=== PATIENT | male | born 1960 | race Caucasian/White ===

== ENCOUNTER → 2024-01-29 06:31 | Day surgery (SDC) | payer BC, SELFPAY | LOC: GI 06:31 | PROVIDERS: ATTENDING PHYSICIAN Internal Medicine | DX: Z12.11 Encounter for screening for malignant neoplasm of colon (principal); D12.4 Benign neoplasm of descending colon; K63.89 Other specified diseases of intestine; K57.30 Diverticulosis of large intestine without perforation or abscess without bleeding; K62.89 Other specified diseases of anus and rectum; K62.1 Rectal polyp; K64.9 Unspecified hemorrhoids; R19.4 Change in bowel habit; K22.4 Dyskinesia of esophagus; R13.14 Dysphagia, pharyngoesophageal phase; K31.89 Other diseases of stomach and duodenum; Z86.010 Personal history of colon polyps; Z98.0 Intestinal bypass and anastomosis status | CPT/HCPCS: 43249; 43239; 45380; 88305 ==

== ENCOUNTER → 2024-05-04 10:42 | Outpatient (REF) | payer BC, SELFPAY | LOC: RAD 10:42 | PROVIDERS: ATTENDING PHYSICIAN Physician Assistant | DX: J18.9 Pneumonia, unspecified organism (principal) | CPT/HCPCS: 71046 ==

== ENCOUNTER 2024-06-03 17:49 | Outpatient (RCR) | payer BC, SELFPAY | END 2024-06-03 23:59 | disposition home or self-care (01) | LOC: ROT 17:49 | PROVIDERS: ATTENDING PHYSICIAN Physician Assistant Surgical; FAMILY PHYSICIAN Nurse Practitioner | DX: M79.641 Pain in right hand (principal); Z73.6 Limitation of activities due to disability | CPT/HCPCS: 97760 ==

== ENCOUNTER → 2024-06-05 13:48 | Outpatient (REF) | payer BC, SELFPAY | LOC: RAD 13:48 | PROVIDERS: ATTENDING PHYSICIAN Nurse Practitioner; FAMILY PHYSICIAN Physician Assistant | DX: J18.9 Pneumonia, unspecified organism (principal); R05.3 Chronic cough | CPT/HCPCS: 71250 ==

== ENCOUNTER → 2025-02-17 08:02 | Outpatient (REF) | payer BC, SELFPAY | LOC: DHSLP 08:02 | PROVIDERS: ATTENDING PHYSICIAN Internal Medicine; FAMILY PHYSICIAN Nurse Practitioner | DX: G47.33 Obstructive sleep apnea (adult) (pediatric) (principal) | CPT/HCPCS: 95800 ==

== ENCOUNTER 2025-03-30 08:54 | Emergency (ER) | payer BC, SELFPAY ==
[2025-03-30 08:56] VITALS: BP 135/95
[2025-03-30 09:22] VITALS: BP 140/92
--- NOTE | 2025-03-30 09:43 | ED.GENMED ---
History of Present Illness
General
Chief Complaint: Chest Pain
Time Seen by Provider: 03/30/25 09:18
History of Present Illness
History of Present Illness:
65-year-old male with history of hyperlipidemia presenting to the emergency department for dizziness and fatigue. Patient reports symptoms for the past week. He notes that he has been fatigued, tired, with occasional dizziness. Also notes that 2
weeks ago had an episode of severe chest tightness, midsternal. Notes that he still having some slight tightness in his chest. Denies difficulty breathing. Has had a cough without known sick contacts. Denies known cardiac history. Denies
abdominal pain or GI symptoms. Denies any fever. Denies additional acute medical complaints
Past History
Past History
ED Past Medical History: CAD, GERD, Hypercholesterolemia, Other (gout) and Other (diverticulitis)
ED Past Surgical History: Orthopedic
Social History
Tobacco: Non-smoker
Alcohol: Occasional
Drug: None
Personal:
Living: with family
Employment: Employed
Phy Exam
Physical Exam
Physical Exam:
General: Well-appearing, no clinical signs of dehydration, nontoxic and in no acute distress
HEENT: protecting airway, pupils equal and reactive
Neck: appears supple
CV: Normal heart rate, regular rhythm
Resp: No accessory muscle use, no increased work of breathing, lungs clear to auscultation bilaterally
Abd: Soft and non-distended, no tenderness to palpation
Extremities: No deformities, no swelling
Neuro: alert, no focal neurologic deficit
: deferred
Rectal: deferred
Psych: Normal affect
Skin: Intact
Scores
Heart Score for Chest Pain Patients
STEMI patient?: No
History: Slightly or Non-Suspicious
ECG: Normal
Age: >45 - <65 years
Risk Factors: 1 or 2 Risk Factors
Troponin: </= Normal Limit
Heart Score for Chest Pain Patients: 2
Heart Score Risk: 2.5% MACE over next 6 weeks
Course
Orders/Labs/Results
Orders:
Orders
03/30/25 09:00
ECG [Electrocardiogram (*1)] Urgent
Reason for Study: Shortness of Breath
EKG- Treatment ONCE
03/30/25 09:41
CR Chest - 2 Views Urgent
Comment:
Reason For Exam: cough, cp
03/30/25 09:52
COVID-19 Antigen Urgent
Source: Nasal Swab
Complete Blood Count/With Diff Urgent
Comprehensive Metabolic Panel Urgent
Magnesium Urgent
Troponin I Urgent
Influenza A+B Rapid Molecular Urgent
[facility] Source: Nasal Swab
Specimen Description:
Abnormal Lab Results
03/30/25
09:52
Absolute Lymphs (auto) 1.1 L 10^3/uL
(1.2-3.4)
Lymphocytes % 19.6 L %
(20.5-51.1)
Monocytes % 9.8 H %
(1.7-9.3)
Glucose 124 H mg/dl
(70-99)
03/30/25 09:52
03/30/25 09:52
Vital Signs
Initial and Last Documented VS:
Initial Vital Signs
Temp Pulse Resp BP Pulse Ox
98.1 F 81 16 135/95 96
03/30/25 08:56 03/30/25 08:56 03/30/25 08:56 03/30/25 08:56 03/30/25 08:56
Last Documented Vital Signs
Temp Pulse Resp BP Pulse Ox
98.1 F 78 23 131/85 94
03/30/25 08:56 03/30/25 11:41 03/30/25 11:41 03/30/25 11:41 03/30/25 11:41
MDM/Problems Addressed
MDM/Problems Addressed:
65-year-old male with history of high cholesterol presenting to the emergency department for dizziness, episode of chest pain, cough. Vital signs on arrival are normal.
On exam patient is resting comfortably, no acute distress or discomfort. EKG obtained on patient's arrival, nonischemic, reassuring. Patient had stress testing completed in 2021, unremarkable. At this time lower suspicion for acute coronary
syndrome. Patient without any significant PE risk factors, no present dyspnea, tachycardia, hypoxia. Unremarkable cardiac and pulmonary exam. No focal neurologic deficits with lower suspicion for central neurologic process. Does note that he has
been feeling generally fatigued tired, has had ongoing cough. Possible pneumonia versus bronchitis. Plan for chest x-ray imaging and laboratory analysis.
11:35 - Patient's labs are unremarkable. Chest x-ray without acute cardiopulmonary disease. On reassessment, patient remains hemodynamically stable. Does continue to have a dry cough. Reports history of 'walking pneumonia' in the past, so will
trial Z-Logan and steroids. Otherwise feel stable for discharge with interval follow-up primary care doctor. Return precautions discussed and patient verbalized understanding
*Pulse Oximetry
SaO2: 96
Oxygen Mode of Delivery: Room air
Patient hypoxic: no
*EKG
Interpreted by ED Provider?: Yes
EKG Intrepretation Date: 03/30/25
EKG Intrepretation Time: 09:46
Interpretation: normal
Comparison EKG: no changes
Heart Rate: 78
Rate: normal
Rhythm: sinus
[place]: normal axis
Interval: normal interval
QRS Pattern: normal QRS
Ischemia: no ischemia
*Critical Care Note
Total Time (30-74mins, 75-104mins- exclusive of procedures): Not Applicable
ED Attending Note
-
Portions of this chart may have been created with voice recognition software.� Occasional wrong word or��sound alike� substitutions may have occurred due to the inherent limitations of voice recognition software.
Discharge Plan
Departure
Patient Disposition: Home (Routine Discharge)
Date of Disposition: 03/30/25
Time of Disposition: 11:36
Patient with high blood pressure during this ER visit?: No
Condition: Good
Discharge Problem:
Bronchitis
Instructions: Acute bronchitis in adults, Cough in adults - ED (DC)
Prescriptions:
New
prednisone 20 mg tablet
40 mg PO DAILY 5 Days Qty: 10 0RF
azithromycin [Zithromax] 250 mg Tablet
250 mg PO DAILY Qty: 6 0RF
No Action
Omeprazole
20 mg PO DAILY
aspirin [Nelsy Low Dose Aspirin] 81 MG tablet,delayed release (DR/EC)
81 mg PO DAILY
[id number]-hmlarug-ast [krill oil] 1 EACH capsule
2 ea PO DAILY
rosuvastatin [Crestor] 10 MG tablet
10 mg PO DAILY
hydrocodone-acetaminophen 1 TABLET tablet
1 - 2 tab PO Q4HPRN PRN (Reason: moderate to severe pain) Qty: 30 0RF
prednisone 20 MG tablet
20 mg PO BID Qty: 10 0RF
meclizine 25 MG tablet
25 mg PO Q8HPRN PRN (Reason: nausea or vertigo) Qty: 20 0RF
Referrals:
UNKNOWN - PT DOES,NOT KNOW [Family Provider]
Activity Restrictions/Additional Instructions:
You were seen in the emergency department for cough, weakness, dizziness
You were found to have reassuring laboratory analysis and vital signs, as well as EKG. Given the duration of your cough, you were provided a prescription for azithromycin and prednisone. Please take as directed
Please follow-up closely with your primary care physician.
Return to the emergency department for any worsening of your symptoms, or any development of chest pain, difficulty breathing, abdominal pain with persistent vomiting and inability to tolerate food or liquid by mouth (concern for dehydration),
weakness, headache or confusion, fever greater than 100.4, or any additional symptoms that are concerning to you.
Thank you for choosing [facility].
Interventions
Interventions:
*Risk Screen - Suicide Last Done: 03/30/25 08:56
*General Assessment Last Done: 03/30/25 08:56
*Neglect/Abuse Screening Last Done: 03/30/25 09:59
*ED- Fall Risk Assessment Last Done: 03/30/25 09:58
*ED COVID-19 Vaccine History Last Done: 03/30/25 09:58
*ED Influenza Vaccine History Last Done: 03/30/25 09:58
*Nursing Disposition Last Done: 03/30/25 11:48
ED- Cardiac Assessment Last Done: 03/30/25 10:00
Discharge Date and Time
Discharge Date/Time: 03/30/25 12:00
Print Language: [email or web address]
[2025-03-30 09:58] VITALS: BMI 26.9
[2025-03-30 10:00] VITALS: BP 129/85
[2025-03-30 10:13] LABS: Hematocrit 44.6 % (39.0-52.0); Hemoglobin 15.3 g/dL (13.0-18.0); Mean Corp Hgb Conc. 34.3 g/dL (33.0-37.0); Mean Corpuscular Volume 88.7 fL (80.0-94.0); Nucleated Red Blood Cells % 0 % (-); Platelet Count 178 10^3/uL (130-400); Red Cell Dist. Width 14.2 % (11.5-14.5)
[2025-03-30 10:22] LABS: COVID-19 Antigen Negative (Negative)
[2025-03-30 10:23] LABS: ALT (SGPT) 41 U/L (0-50); AST (SGOT) 32 U/L (17-59); Albumin 4.4 g/dl (3.5-5.0); Alkaline Phosphatase 56 U/L (38-126); Blood Urea Nitrogen 18 mg/dl (9-20); Calcium 9.7 mg/dl (8.4-10.2); Carbon Dioxide 29 mmol/L (22-30); Chloride 105 mmol/L (98-107); Estimated Creatinine Clearance 69 ml/min; Glucose 124 mg/dl (70-99); Magnesium 2.0 mg/dl (1.6-2.3); Potassium 4.3 mmol/L (3.5-5.1); Sodium 139 mmol/L (135-145); Total Protein 7.3 g/dl (6.3-8.2); eGFR > 60.00
[2025-03-30 10:34] LABS: Troponin I < 0.012 ng/ml
[2025-03-30 11:00] VITALS: BP 122/89
[2025-03-30 11:41] VITALS: BP 131/85
== END 2025-03-30 12:00 | disposition home or self-care (01) ==
LOC: EMR 08:54
PROVIDERS: EMERGENCY PHYSICIAN Student in an Organized Health Care Education/Training Program
DX: J40 Bronchitis, not specified as acute or chronic (principal); I25.10 Atherosclerotic heart disease of native coronary artery without angina pectoris; E78.00 Pure hypercholesterolemia, unspecified; K21.9 Gastro-esophageal reflux disease without esophagitis; M10.9 Gout, unspecified; Z87.01 Personal history of pneumonia (recurrent)
CPT/HCPCS: 99284; 71046; 80053; 83735; 84484; 85025; 87502; 87811; 93005